=== PATIENT | female | born 1965 | race Caucasian/White ===

== ENCOUNTER → 2020-08-28 | Day surgery (SDC) | payer BC ==
[~2020-08-28] MED LIST: ADDERALL 20 MG20 MG PO; COLACE100 MG PO; DAILY VALUE1 EACH PO; DOXEPIN HCL10 MG PO; LEVOTHYROXINE88 MC1 PO; PERCOCET 5/325 T1 EA PO; WELLBUTRIN XL300 MG PO
== END | disposition home or self-care (01) ==
LOC: OR 10:03
DX: Z12.11 Encounter for screening for malignant neoplasm of colon (principal); K64.8 Other hemorrhoids; K57.30 Diverticulosis of large intestine without perforation or abscess without bleeding; Z98.51 Tubal ligation status; Z90.710 Acquired absence of both cervix and uterus; E89.0 Postprocedural hypothyroidism; F41.9 Anxiety disorder, unspecified; D64.9 Anemia, unspecified
CPT/HCPCS: 46260; G0121; J1100; J1885; J2001; J2250; J2405; J2704; J3010; J7030; J7120